=== PATIENT | male | born 1930 | race Caucasian/White ===

== ENCOUNTER 2016-06-02 05:14 | Inpatient (IN) | payer MEDICARE ==
[~2016-06-02] VITALS: Ht 172.7 cm; Wt 105.0 kg
[~2016-06-02 05:14] MED LIST: ALBU0.63 NEB; ALBUAER3 INH; ASPI81CH CHEW; AZIT500T2 PO; CITA20TA4 PO; HYDR-3580 PO; IPRA0.02 NEB; LORA1TAB12 PO; MIRTA15 PO; POTA1TAB4 PO; PRED20 PO; VENTAER INH; ZOLP10TA3 PO
[2016-06-02 05:17] VITALS: BP 138/81; PULSE 104; RESP 20; TEMP 97.8; O2SAT 98
--- NOTE | 2016-06-02 06:16 | RADRPT ---
EXAM DATE/TIME: 06/02/2016 05:57 [facility] COMPARISON: No previous studies available for comparison. INDICATIONS : Pt fell yesterday and landed on elbows. Pain and bleeding to right elbow. MEDICAL HISTORY : Hypertension. Myocardial infarction. Congestive heart failure. COPD SURGICAL HISTORY : CABG. ENCOUNTER: Initial ACUITY: 1 day PAIN SCORE: 7/10 LOCATION: Right elbow FINDINGS: Multiple view examination of the right elbow demonstrates no soft tissue swelling, joint effusion, or fracture. The osseous structures are in normal alignment. Bony mineralization is normal. 16mm chronic appearing heterotopic ossification seen adjacent to the medial epicondyle. CONCLUSION: No acute fracture of the right elbow. Chronic appearing heterotopic ossification of the medial epicon dyle which may be related to old trauma or chronic tendinosis of the common flexor origin. Charlie Gamino MD on June 02, 2016 at 6:12 Board Certified Radiologist. This report was verified electronically.
--- NOTE | 2016-06-02 06:19 | RADRPT ---
EXAM DATE/TIME: 06/02/2016 05:58 [facility] COMPARISON: No previous studies available for comparison. INDICATIONS : Bilateral leg pain. MEDICAL HISTORY : Myocardial infarction. Hypercholesterolemia. Hypertension. Glaucoma. Congestive heart failure. COPD. SURGICAL HISTORY : CABG Cardiac catheterization. Hernia repair. ENCOUNTER: Subsequent ACUITY: 1 day PAIN SCORE: 0/10 LOCATION: Bilateral legs. TECHNIQUE: Venous ultrasound of the left and right leg was performed from the inguinal ligament to the proximal calf. Real-time, color Doppler and spectral tracing, compression and augmentation techniques were us ed. FINDINGS: RIGHT LEG: There is normal compressibility of the deep venous system from the inguinal region to the proximal ca lf. No echogenic clot is seen in the lumen of the common femoral, femoral, popliteal, and posterior tibial veins. There is a normal response of the venous system to proximal and distal augmentation an d respiration. LEFT LEG: There is normal compressibility of the deep venous system from the inguinal region to the proximal ca lf. No echogenic clot is seen in the lumen of the common femoral, femoral, popliteal, and posterior tibial veins. There is a normal response of the venous system to proximal and distal augmentation an d respiration. CONCLUSION: No DVT of either lower extremity. Subcutaneous edema noted, especially below the knee on the right. Charlie Gamino MD on June 02, 2016 at 6:16 Board Certified Radiologist. This report was verified electronically.
[2016-06-02 06:47] VITALS: BP 142/68; PULSE 78; RESP 16; O2SAT 96
[2016-06-02] MEDS ORDERED: VANCOMYCIN INJ 1,000 MG in SODIUM CHLOR 0.9% 250 ML INJ 250 ML IV ONE (07:00)
[2016-06-02] MEDS ORDERED: PIPERACIL-TAZO 3.375 GM PREMIX 50 ML IV ONE (07:00)
--- NOTE | 2016-06-02 07:16 | PD ---
HPI Chief Complaint: Fall Time Seen by Provider: 05:44 Travel History International Travel<30 days: No Contact w/Intl Traveler<30days: No Traveled to known affect area: No History of Present Illness HPI Patient is an 86-year-old male presents to emergency department after trip and fall at home. Patient states he was getting a chair trying to bring upstairs facility prop his foot up because his been swollen. Patient states he tripped and fell and put his elbows on front of him to protect his head, did not his head or neck. His next door neighbor came over and dressed his wounds brought him in to be evaluated for his wounds. Patient was evaluated had an urgent care facility for his right lower externa a swelling and was started on doxycycline 6 days ago. Patient states his leg does not improve significant since then. Denies any fever shortness of breath. Denies any history of blood clots and does not take any blood thinners. Last tetanus was within a year as part of a checkup. PFSH Past Medical History Hx Anticoagulant Therapy: No Asthma: Yes ([place]) Autoimmune Disease: No Blood Disorders: No Anxiety: Yes Depression: Yes Heart Rhythm Problems: Yes Cancer: No Cardiac Catheterization: Yes (1999) Cardiovascular Problems: Yes (CABG X4, [place], CAD) High Cholesterol: Yes Chemotherapy: No Chest Pain: Yes Congestive Heart Failure: Yes COPD: Yes Coronary Artery Disease: Yes Diabetes: No Diminished Hearing: Yes ([place]) Endocrine: No Gastrointestinal Disorders: Yes Glaucoma: Yes Genitourinary: No Hiatal Hernia: Yes Hypertension: Yes Insomnia: Yes Musculoskeletal: Yes (CHRONIC BACK PAIN ) Neurologic: No Psychiatric: Yes Respiratory: Yes (SOB) Myocardial Infarction: Yes (2004) Sleep Apnea: No PNEUMOCCOCAL Vaccine (Year): 1 Past Surgical History Abdominal Surgery: Yes (HERNIA) AICD: No Cardiac Surgery: Yes Coronary Artery Bypass Graft: Yes (4 BYPASS-2004) Eye Surgery: Yes (CATARACTS) Genitourinary Surgery: Yes (hydrocele) Pacemaker: No Tonsillectomy: Yes Other Surgery: Yes Family History Family Myocardial Infarction: Yes Social History Alcohol Use: No Tobacco Use: No (QUIT 1950) Substance Use: No Allergies-Medications (Allergen,Severity, Reaction): Coded Allergies: No Known Allergies (Verified , 06/02/16) Reported Meds & Prescriptions Reported Meds & Active Scripts Active Proair Hfa 8.5 GM Inh (Albuterol Sulfate) 90 Mcg/Act Aer 2 Puff INH Q6H PRN 108 mcg/actuation Lorazepam 1 Mg Tab 1 Mg PO Q8H PRN Reported K-Tab (Potassium Chloride) 20 Meq Tab 20 Meq PO DAILY Ipratropium Neb (Ipratropium [place]) 0.5 Mg/2.5 Ml Amp 0.5 Mg NEB ONCE Ventolin Hfa 18 GM Inh (Albuterol Sulfate) 90 Mcg/Act Aer 1 Puff INH Q4H PRN Albuterol Neb (Albuterol Sulfate) 0.63 Mg/3 Ml Neb 0.083 % NEB Q4HR NEB PRN Aspirin 81 Mg Chew 2 Tab CHEW DAILY Mirtazapine 15 Mg Tab 15 Mg PO HS Hydrocodone-Acetaminophen 7.5-325 mg Tab 1 Tab PO TID PRN Zolpidem (Zolpidem Tartrate) 10 Mg Tab 10 Mg PO HS PRN Citalopram (Citalopram Hydrobromide) 20 Mg Tab 20 Mg PO HS Review of Systems Except as stated in HPI: all other systems reviewed are Neg Physical Exam Narrative GENERAL: Well-developed well-nourished in no apparent distress. Quite pleasant. SKIN: Warm and dry. There are avulsion's to the extensor surface of bilateral elbows. The left is fairly linear already showing signs of early healing and scabbed formation. The right shows multiple quarter-sized abrasions and skin avulsions. Hemodynamically intact. The right lower extremity shows cellulitis from the patella distally and nearly circumferential. HEAD: Atraumatic. Normocephalic. EYES: Pupils equal and round. No scleral icterus. No injection or drainage. ENT: No nasal bleeding or discharge. Mucous membranes pink and moist. NECK: Trachea midline. No JVD. CARDIOVASCULAR: Regular rate and rhythm. No murmur appreciated. 2+ bilateral equal pulses in all 4 extremity's. RESPIRATORY: No accessory muscle use. Clear to auscultation. Breath sounds equal bilaterally. GASTROINTESTINAL: Abdomen soft, non-tender, nondistended. Hepatic and splenic margins not palpable. MUSCULOSKELETAL: No obvious deformities. No clubbing. No cyanosis. 2-3+ pitting edema from the anterior tibial prominence distally On the right lower extremity only. There is no swelling of the left lower extremity. NEUROLOGICAL: Awake and alert. No obvious cranial nerve deficits. Motor grossly within normal limits. Normal speech. PSYCHIATRIC: Appropriate mood and affect; insight and judgment normal. Data Data Last Documented VS Vital Signs Date Time Temp Pulse Resp B/P Pulse Ox O2 Delivery O2 Flow Rate FiO2 06/02/16 07:40 96 06/02/16 06:47 78 16 142/68 Room Air 06/02/16 05:17 97.8 Orders Elbow, Complete (4 Vws) (06/02/16 ) Us Leg Venous Doppler Bilat (06/02/16 ) Complete Blood Count With Diff (06/02/16 06:55) Comprehensive Metabolic Panel (06/02/16 06:55) Blood Culture (06/02/16 06:55) Blood Glucose (06/02/16 06:55) Ecg Monitoring (06/02/16 06:55) Iv Access Insert/Monitor (06/02/16 06:55) Oximetry (06/02/16 06:55) Oxygen Administration (06/02/16 06:55) Lactic Acid (06/02/16 06:55) Vancomycin Inj (Vancomycin Inj) (06/02/16 07:00) Piperacil-Tazo 3.375 Gm Premix (Zosyn 3. (06/02/16 07:00) Admit Order (Ed Use Only) (06/02/16 ) Labs Laboratory Tests Test 06/02/16 07:00 White Blood Count 9.2 TH/MM3 Red Blood Count 4.13 MIL/MM3 Hemoglobin 12.9 GM/DL Hematocrit 38.7 % Mean Corpuscular Volume 93.7 FL Mean Corpuscular Hemoglobin 31.4 PG Mean Corpuscular Hemoglobin 33.5 % Concent Red Cell Distribution Width 15.7 % Platelet Count 182 TH/MM3 Mean Platelet Volume 8.9 FL Neutrophils (%) (Auto) 61.5 % Lymphocytes (%) (Auto) 24.6 % Monocytes (%) (Auto) 11.3 % Eosinophils (%) (Auto) 1.9 % Basophils (%) (Auto) 0.7 % Neutrophils # (Auto) 5.7 TH/MM3 Lymphocytes # (Auto) 2.3 TH/MM3 Monocytes # (Auto) 1.0 TH/MM3 Eosinophils # (Auto) 0.2 TH/MM3 Basophils # (Auto) 0.1 TH/MM3 CBC Comment DIFF FINAL Differential Comment Sodium Level 139 MEQ/L Potassium Level 4.7 MEQ/L Chloride Level 100 MEQ/L Carbon Dioxide Level 34.2 MEQ/L Anion Gap 5 MEQ/L Blood Urea Nitrogen 24 MG/DL Creatinine 1.44 MG/DL Estimat Glomerular Filtration 47 ML/MIN Rate Random Glucose 111 MG/DL Lactic Acid Level 1.4 mmol/L Calcium Level 8.7 MG/DL Total Bilirubin 0.5 MG/DL Aspartate Amino Transf 36 U/L (AST/SGOT) Alanine Aminotransferase 22 U/L (ALT/SGPT) Alkaline Phosphatase 83 U/L Total Protein 7.5 GM/DL Albumin 3.3 GM/DL [facility] Medical Decision Making Medical Screen Exam Complete: Yes Emergency Medical Condition: Yes Differential Diagnosis Fall, cellulitis, failure of outpatient therapy, sepsis unlikely, elbow fracture. C-spine and head are excluded clinically. Narrative Course Patient was roomed in the emergency department, DVT ultrasound shows no evidence of DVT but significant cellulitis. On exam of the patient's right lower extremity does have significant cellulitis and given that his been nontoxic in for 6 days and has not had a response this is a failure of outpatient therapy. Patient appears well. X-ray of the elbow is negative. He has some minor skin avulsions but nothing that requires approximation. Will be dressed with non-adherent dressings. Patient was discussed with Dr. Barraza who will admit. Diagnosis Primary Impression: Cellulitis Qualified Code: L03.115 - Cellulitis of right lower extremity Additional Impressions: Skin avulsion Fall Qualified Code: W19.XXXA - Fall, initial encounter Admitting Information Admitting Physician Requests: Observation Condition: Stable Sb Youngblood MD Jun 02, 2016 07:16
[2016-06-02 07:30] LABS: AUTOMATED NEUTROPHIL # 5.7 TH/MM3 (1.8-7.7); BASOPHIL # 0.1 TH/MM3 (0-0.2); BASOPHIL % 0.7 % (0.0-2.0); EOSINOPHIL # 0.2 TH/MM3 (0-0.4); EOSINOPHIL % 1.9 % (0.0-4.0); HEMATOCRIT 38.7 % (39.0-51.0); HEMO FLAGS DIFF FINAL; LYMPH % 24.6 % (9.0-44.0); LYMPHOCYTE # 2.3 TH/MM3 (1.0-4.8); MEAN CELL VOLUME 93.7 FL (80.0-100.0); MEAN CORPUSCULAR HEMOGLOBIN 31.4 PG (27.0-34.0); MEAN CORPUSCULAR HGB CONC 33.5 % (32.0-36.0); MONO % 11.3 % (0.0-8.0); NEUT % 61.5 % (16.0-70.0); PLATELET COUNT 182 TH/MM3 (150-450); RED BLOOD COUNT 4.13 MIL/MM3 (4.50-5.90); RED CELL DISTRIBUTION WIDTH 15.7 % (11.6-17.2); WHITE BLOOD COUNT 9.2 TH/MM3 (4.0-11.0)
[2016-06-02 07:40] VITALS: O2SAT 96
[2016-06-02 07:46] LABS: ALKALINE PHOSPHATASE 83 U/L (45-117); TOTAL BILIRUBIN ADULT 0.5 MG/DL (0.2-1.0)
[2016-06-02 07:48] LABS: ALT (GPT) 22 U/L (12-78); ANION GAP 5 MEQ/L (5-15); AST (GOT) 36 U/L (15-37); BICARBONATE 34.2 MEQ/L (21.0-32.0); BLOOD UREA NITROGEN 24 MG/DL (7-18); CHLORIDE 100 MEQ/L (98-107); GLOMERULAR FILTRATION RATE 47 ML/MIN (>89); SODIUM (NA) 139 MEQ/L (136-145)
[2016-06-02 07:49] LABS: POTASSIUM 4.7 MEQ/L (3.5-5.1)
[2016-06-02] MEDS ORDERED: LORazepam 1 MG TAB PO PRN (15:00)
[2016-06-02] MEDS ORDERED: RESP: ALBUTEROL 2.5 MG/IPRATROPIUM 0.5 MG NEB (PRN) NEB (15:00)
[2016-06-02] MEDS ORDERED: Vancomycin Consult Pharmacy 1 EA OTHER SCH (15:00)
--- NOTE | 2016-06-02 15:01 | HHI.HP ---
HPI Service [facility] Hospitalists Primary Care Physician Zenon Melendrez M.D. Admission Diagnosis Cellulitis Chief Complaint: fall/right leg swelling Travel History International Travel<30 Days: No Contact w/Intl Traveler <30 Da: No Traveled to Known Affected Are: No History of Present Illness Pt is 86 yo with cad and copd who presents after fall and also complaint of rle swelling. Pt says his RLE has been swollen and now red progressing over past month. He was given some doxycycline which didn't help. He was trying get his leg elevated when he fell and injured both elbows. I was asked to admit him in relation to his leg. Review of Systems Other fall. elbows injured rle swelling Past Family Social History Past Medical History chronic back pains requiring every other month TERRELL cad/cabg x 4 copd. fev1 43% 2014. reversible with bronchodilators htn anxiety hyperlipidemia bph Reported Medications Reported Meds & Active Scripts Active Proair Hfa 8.5 GM Inh (Albuterol Sulfate) 90 Mcg/Act Aer 2 Puff INH Q6H PRN 108 mcg/actuation Lorazepam 1 Mg Tab 1 Mg PO Q8H PRN Reported K-Tab (Potassium Chloride) 20 Meq Tab 20 Meq PO DAILY Ipratropium Neb (Ipratropium [place]) 0.5 Mg/2.5 Ml Amp 0.5 Mg NEB ONCE Ventolin Hfa 18 GM Inh (Albuterol Sulfate) 90 Mcg/Act Aer 1 Puff INH Q4H PRN Albuterol Neb (Albuterol Sulfate) 0.63 Mg/3 Ml Neb 0.083 % NEB Q4HR NEB PRN Aspirin 81 Mg Chew 2 Tab CHEW DAILY Mirtazapine 15 Mg Tab 15 Mg PO HS Hydrocodone-Acetaminophen 7.5-325 mg Tab 1 Tab PO TID PRN Zolpidem (Zolpidem Tartrate) 10 Mg Tab 10 Mg PO HS PRN Citalopram (Citalopram Hydrobromide) 20 Mg Tab 20 Mg PO HS Allergies: Coded Allergies: No Known Allergies (Verified , 06/02/16) Family History nc Social History no tob/etoh Physical Exam Vital Signs oriented heart reg lung cta abd s/nt ext severe rle edema/tenderness/redness to above the knee both elbow wrapped with ruadel Vital Signs Date Time Temp Pulse Resp B/P Pulse Ox O2 Delivery O2 Flow Rate FiO2 06/02/16 07:40 96 06/02/16 07:40 96 06/02/16 06:47 78 16 142/68 96 Room Air 06/02/16 06:01 20 97 Room Air 06/02/16 05:17 97.8 104 20 138/81 98 Room Air Laboratory Laboratory Tests Test 06/02/16 07:00 White Blood Count 9.2 Red Blood Count 4.13 Hemoglobin 12.9 Hematocrit 38.7 Mean Corpuscular Volume 93.7 Mean Corpuscular Hemoglobin 31.4 Mean Corpuscular Hemoglobin 33.5 Concent Red Cell Distribution Width 15.7 Platelet Count 182 Mean Platelet Volume 8.9 Neutrophils (%) (Auto) 61.5 Lymphocytes (%) (Auto) 24.6 Monocytes (%) (Auto) 11.3 Eosinophils (%) (Auto) 1.9 Basophils (%) (Auto) 0.7 Neutrophils # (Auto) 5.7 Lymphocytes # (Auto) 2.3 Monocytes # (Auto) 1.0 Eosinophils # (Auto) 0.2 Basophils # (Auto) 0.1 CBC Comment DIFF FINAL Differential Comment Sodium Level 139 Potassium Level 4.7 Chloride Level 100 Carbon Dioxide Level 34.2 Anion Gap 5 Blood Urea Nitrogen 24 Creatinine 1.44 Estimat Glomerular Filtration 47 Rate Random Glucose 111 Lactic Acid Level 1.4 Calcium Level 8.7 Total Bilirubin 0.5 Aspartate Amino Transf 36 (AST/SGOT) Alanine Aminotransferase 22 (ALT/SGPT) Alkaline Phosphatase 83 Total Protein 7.5 Albumin 3.3 Date/Time Procedure Status Source Growth 06/02/16 07:15 Aerobic Blood Culture Received Blood Peripheral Pending 06/02/16 07:15 Anaerobic Blood Culture Received Blood Peripheral Pending Result Diagram: 06/02/16 0706/02/16 0700 Assessment and Plan Problem List: (1) Cellulitis Status: Acute Plan: Cellulitis right lower extremity. failed outpt therapy. S/P fall today with abrasions over both elbows. Vancomycin initiated. continue. elevate leg. U/S rle neg for dvt PT dvt prophylaxis prn pain control (2) CAD (coronary artery disease) Status: Chronic Plan: cont home meds (3) COPD (chronic obstructive pulmonary disease) Status: Chronic Plan: stable. duonebs as needed. (4) Anxiety Status: Chronic (5) CKD (chronic kidney disease) stage 3, GFR 30-59 ml/min Status: Chronic Physician Certification 2 Midnight Certification Type: Admission for Inpatient Services Order for Inpatient Services 3The services are ordered in accordance with Medicare regulations or non- Medicare payer requirements, as applicable. In the case of services not specified as inpatient-only, they are appropriately provided as inpatient services in accordance with the 2-midnight benchmark. Estimated LOS (days): 3 3 days is the estimated time the patient will need to remain in the hospital, assuming treatment plan goals are met and no additional complications. Post-Hospital Plan: Home Problem Qualifiers (1) Cellulitis: Qualified Code: L03.115 - Cellulitis of right lower extremity Sorin Barraza MD Jun 02, 2016 15:01
[2016-06-02 16:00] VITALS: BP 143/70; PULSE 92; RESP 22; TEMP 98.2; O2SAT 95
[2016-06-02] MEDS ORDERED: VANCOMYCIN INJ 750 MG in SODIUM CHLOR 0.9% 250 ML INJ 250 ML IV SCH (17:00)
[2016-06-02 20:45] VITALS: BP 140/75; PULSE 95; RESP 16; TEMP 98; O2SAT 92
[2016-06-02] MEDS: MIRTAZAPINE 15 MG TAB PO SCH (21:19)
[2016-06-02] MEDS: CITALOPRAM HYDROBROMIDE 20 MG TAB PO SCH (21:19)
[2016-06-02] MEDS: ACETAMINOPHEN/HYDROcodone 325 MG/7.5 MG TAB PO PRN (21:21)
[2016-06-02 23:58] VITALS: BP 162/76; PULSE 95; RESP 16; TEMP 97.4; O2SAT 90
[2016-06-03 04:21] VITALS: BP 128/76; PULSE 78; RESP 18; TEMP 97.9; O2SAT 94
[2016-06-03 06:39] LABS: BICARBONATE 32.5 MEQ/L (21.0-32.0); POTASSIUM 3.7 MEQ/L (3.5-5.1)
[2016-06-03 08:45] VITALS: BP 187/88; PULSE 94; RESP 18; TEMP 97.8; O2SAT 93
[2016-06-03] MEDS: HEPARIN SODIUM - SQ 10,000 UNITS/ML VIAL SQ SCH ×2 (09:00→22:21)
[2016-06-03] MEDS: POTASSIUM CHLORIDE 20 MEQ CONTROLLED RELEASE TAB PO SCH (09:59)
[2016-06-03] MEDS: ASPIRIN 81 MG CHEW TAB CHEW SCH (10:00)
[2016-06-03] MEDS: ACETAMINOPHEN/HYDROcodone 325 MG/7.5 MG TAB PO PRN ×2 (10:00→15:11)
--- NOTE | 2016-06-03 11:59 | HHI.PR ---
Subjective Remarks Pt without any new complaints. He reports that he walked with PT this morning. Afebrile Objective Vitals Vital Signs Date Time Temp Pulse Resp B/P Pulse Ox O2 Delivery O2 Flow Rate FiO2 06/03/16 08:45 97.8 94 18 187/88 93 06/03/16 04:21 97.9 78 18 128/76 94 06/02/16 23:58 97.4 95 16 162/76 90 06/02/16 20:45 98.0 95 16 140/75 92 06/02/16 16:00 98.2 92 22 143/70 95 06/02/16 06/02/16 06/03/16 15:00 23:00 07:00 Intake Total 480 ml 50 ml Balance 480 ml 50 ml Intake Oral 480 ml 50 ml # Voids 2 2 # Bowel Movements 0 Result Diagram: 06/02/16 0700 06/03/16 0529 Other Results Laboratory Tests Test 06/02/16 06/03/16 07:00 05:29 White Blood Count 9.2 TH/MM3 Red Blood Count 4.13 MIL/MM3 Hemoglobin 12.9 GM/DL Hematocrit 38.7 % Mean Corpuscular Volume 93.7 FL Mean Corpuscular Hemoglobin 31.4 PG Mean Corpuscular Hemoglobin 33.5 % Concent Red Cell Distribution Width 15.7 % Platelet Count 182 TH/MM3 Mean Platelet Volume 8.9 FL Neutrophils (%) (Auto) 61.5 % Lymphocytes (%) (Auto) 24.6 % Monocytes (%) (Auto) 11.3 % Eosinophils (%) (Auto) 1.9 % Basophils (%) (Auto) 0.7 % Neutrophils # (Auto) 5.7 TH/MM3 Lymphocytes # (Auto) 2.3 TH/MM3 Monocytes # (Auto) 1.0 TH/MM3 Eosinophils # (Auto) 0.2 TH/MM3 Basophils # (Auto) 0.1 TH/MM3 CBC Comment DIFF FINAL Differential Comment Sodium Level 139 MEQ/L 139 MEQ/L Potassium Level 4.7 MEQ/L 3.7 MEQ/L Chloride Level 100 MEQ/L 100 MEQ/L Carbon Dioxide Level 34.2 MEQ/L 32.5 MEQ/L Anion Gap 5 MEQ/L 7 MEQ/L Blood Urea Nitrogen 24 MG/DL 22 MG/DL Creatinine 1.44 MG/DL 1.19 MG/DL Estimat Glomerular Filtration 47 ML/MIN 58 ML/MIN Rate Random Glucose 111 MG/DL 111 MG/DL Lactic Acid Level 1.4 mmol/L Calcium Level 8.7 MG/DL 8.7 MG/DL Total Bilirubin 0.5 MG/DL Aspartate Amino Transf 36 U/L (AST/SGOT) Alanine Aminotransferase 22 U/L (ALT/SGPT) Alkaline Phosphatase 83 U/L Total Protein 7.5 GM/DL Albumin 3.3 GM/DL Random Vancomycin Level 10.6 COMMENT Imaging Last Impressions Lower Extremity Ultrasound 06/02/16 0000 Signed Impressions: Service Date/Time: Thursday, June 02, 2016 05:58 - CONCLUSION: No DVT of either lower extremity. Subcutaneous edema noted, especially below the knee on the right. Charlie Gamino MD Elbow X-Ray 06/02/16 0000 Signed Impressions: Service Date/Time: Thursday, June 02, 2016 05:57 - CONCLUSION: No acute fracture of the right elbow. 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 Charlie Gamino MD Objective Remarks General: NAD, AAOx3 Chest: CTA bilaterally Cardiac: Regular Abd: +BS, soft ND/NT Ext: RLE erythema and swelling to the knee, elbows with skin tears bilaterally A/P Problem List: (1) Cellulitis Status: Acute Plan: - Pt admitted with cellulitis right lower extremity which failed outpt therapy with Doxycycline - Pt fell prior to admission with abrasions over both elbows. - Elbow Xray negative for fracture - Pt started on Vancomycin IV for cellulitis. - Cont. to elevate leg. - U/S RLE neg for DVT - PT - Pain control PRN - DVT prophylaxis (2) CAD (coronary artery disease) Status: Chronic Plan: - Cont home meds (3) COPD (chronic obstructive pulmonary disease) Status: Chronic Plan: - Stable. - Duonebs as needed. (4) Anxiety Status: Chronic (5) CKD (chronic kidney disease) stage 3, GFR 30-59 ml/min Status: Chronic Assessment and Plan Patient examined. Assessment and plan formulated with Karissa Pritchett PA-C. I agree with the above. Problem Qualifiers (1) Cellulitis: Qualified Code: L03.115 - Cellulitis of right lower extremity Karissa Pritchettb 13, 2017 11:59 Calos Rice DO Jun 09, 2016 06:40
[2016-06-03 12:01] VITALS: BP 142/65; PULSE 96; RESP 18; O2SAT 93
[2016-06-03] MEDS: VANCOMYCIN INJ 1,750 MG in SODIUM CHLORID 0.9% 500 ML INJ 500 ML IV SCH (12:34)
[2016-06-03 16:09] VITALS: BP 127/62; PULSE 93; RESP 18; O2SAT 95
[2016-06-03 19:59] VITALS: BP 142/70; PULSE 80; RESP 18; TEMP 98.2; O2SAT 97
[2016-06-03] MEDS: MIRTAZAPINE 15 MG TAB PO SCH (22:17)
[2016-06-03] MEDS: ZOLPIDEM TARTRATE 5 MG TAB PO PRN (22:17)
[2016-06-03] MEDS: CITALOPRAM HYDROBROMIDE 20 MG TAB PO SCH (22:17)
[2016-06-04] VITALS (7 sets, daily range): BP systolic 128–183; BP diastolic 70–80; PULSE 76–92; RESP 18–20; TEMP 97.5–98.6; O2SAT 93–97
[2016-06-04] MEDS: ASPIRIN 81 MG CHEW TAB CHEW SCH (09:01)
[2016-06-04] MEDS: HEPARIN SODIUM - SQ 10,000 UNITS/ML VIAL SQ SCH ×2 (09:01→22:10)
[2016-06-04] MEDS: POTASSIUM CHLORIDE 20 MEQ CONTROLLED RELEASE TAB PO SCH (09:01)
[2016-06-04] MEDS: ACETAMINOPHEN/HYDROcodone 325 MG/7.5 MG TAB PO PRN ×2 (09:01→15:05)
[2016-06-04] MEDS: VANCOMYCIN INJ 1,750 MG in SODIUM CHLORID 0.9% 500 ML INJ 500 ML IV SCH (10:47)
--- NOTE | 2016-06-04 13:43 | HHI.PR ---
Subjective Remarks No new complaints Objective Vitals Vital Signs Date Time Temp Pulse Resp B/P Pulse Ox O2 Delivery O2 Flow Rate FiO2 06/04/16 12:00 98.6 89 18 171/77 94 06/04/16 08:00 97.5 89 20 183/80 97 06/04/16 05:15 92 18 128/73 97 06/04/16 01:26 76 20 130/71 96 06/03/16 20:00 Nasal Cannula 2.00 06/03/16 19:59 98.2 80 18 142/70 97 06/03/16 16:09 93 18 127/62 95 06/03/16 06/03/16 06/04/16 15:00 23:00 07:00 Intake Total 1050 ml Output Total 900 ml Balance 150 ml Intake Oral 800 ml IV Total 250 ml Output Urine Total 900 ml Result Diagram: 06/02/16 0700 06/04/16 0533 Other Results Laboratory Tests Test 06/03/16 06/04/16 05:29 05:33 Sodium Level 139 MEQ/L Potassium Level 3.7 MEQ/L Chloride Level 100 MEQ/L Carbon Dioxide Level 32.5 MEQ/L Anion Gap 7 MEQ/L Blood Urea Nitrogen 22 MG/DL Creatinine 1.19 MG/DL 1.11 MG/DL Estimat Glomerular Filtration 58 ML/MIN 63 ML/MIN Rate Random Glucose 111 MG/DL Calcium Level 8.7 MG/DL Random Vancomycin Level 10.6 COMMENT Imaging Last Impressions Lower Extremity Ultrasound 06/02/16 0000 Signed Impressions: Service Date/Time: Thursday, June 02, 2016 05:58 - CONCLUSION: No DVT of either lower extremity. Subcutaneous edema noted, especially below the knee on the right. Charlie Gamino MD Elbow X-Ray 06/02/16 0000 Signed Impressions: Service Date/Time: Thursday, June 02, 2016 05:57 - CONCLUSION: No acute fracture of the right elbow. 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 Charlie Gamino MD Objective Remarks General: NAD, AAOx3 Chest: CTA bilaterally Cardiac: Regular Abd: +BS, soft ND/NT Ext: RLE erythema and swelling to the knee, elbows with skin tears bilaterally A/P Problem List: (1) Cellulitis Status: Acute Plan: - Pt admitted with cellulitis right lower extremity which failed outpt therapy with Doxycycline - Pt fell prior to admission with abrasions over both elbows. - Elbow Xray negative for fracture - Pt started on Vancomycin IV for cellulitis. Symptomatically seems to be improving. - Cont. to elevate leg. - U/S RLE neg for DVT - PT - Pain control PRN - DVT prophylaxis (2) CAD (coronary artery disease) Status: Chronic Plan: - Pts blood pressure is elevated today - May be pain related - Clonidine PRN (3) COPD (chronic obstructive pulmonary disease) Status: Chronic Plan: - Stable. - Duonebs as needed. (4) Anxiety Status: Chronic (5) CKD (chronic kidney disease) stage 3, GFR 30-59 ml/min Status: Chronic Assessment and Plan Patient examined. Assessment and plan formulated with Karissa Pritchett PA-C. I agree with the above. Problem Qualifiers (1) Cellulitis: Qualified Code: L03.115 - Cellulitis of right lower extremity Karissa Pritchett Jun 04, 2016 13:43 Calos Rice DO Jun 09, 2016 06:40
[2016-06-04] MEDS ORDERED: cloNIDine HCL 0.1 MG TAB PO PRN (13:45)
[2016-06-04] MEDS: MIRTAZAPINE 15 MG TAB PO SCH (22:10)
[2016-06-04] MEDS: CITALOPRAM HYDROBROMIDE 20 MG TAB PO SCH (22:10)
[2016-06-04] MEDS: ZOLPIDEM TARTRATE 5 MG TAB PO PRN (22:10)
[2016-06-05] VITALS (8 sets, daily range): BP systolic 129–174; BP diastolic 66–109; PULSE 78–94; RESP 16–20; TEMP 96.1–98.6; O2SAT 91–96
[2016-06-05 06:14] LABS: AUTOMATED NEUTROPHIL # 3.6 TH/MM3 (1.8-7.7); BASOPHIL % 0.7 % (0.0-2.0); EOSINOPHIL # 0.2 TH/MM3 (0-0.4); EOSINOPHIL % 3.7 % (0.0-4.0); HEMATOCRIT 36.4 % (39.0-51.0); HEMO FLAGS DIFF FINAL; LYMPH % 27.9 % (9.0-44.0); LYMPHOCYTE # 1.7 TH/MM3 (1.0-4.8); MEAN CELL VOLUME 94.7 FL (80.0-100.0); MEAN CORPUSCULAR HEMOGLOBIN 30.9 PG (27.0-34.0); MEAN CORPUSCULAR HGB CONC 32.6 % (32.0-36.0); MONO % 10.5 % (0.0-8.0); NEUT % 57.2 % (16.0-70.0); PLATELET COUNT 177 TH/MM3 (150-450); RED BLOOD COUNT 3.84 MIL/MM3 (4.50-5.90); WHITE BLOOD COUNT 6.2 TH/MM3 (4.0-11.0)
[2016-06-05 06:32] LABS: MAGNESIUM 2.2 MG/DL (1.5-2.5); POTASSIUM 3.8 MEQ/L (3.5-5.1)
[2016-06-05] MEDS: POTASSIUM CHLORIDE 20 MEQ CONTROLLED RELEASE TAB PO SCH (09:21)
[2016-06-05] MEDS: HEPARIN SODIUM - SQ 10,000 UNITS/ML VIAL SQ SCH ×2 (09:22→21:20)
[2016-06-05] MEDS: ACETAMINOPHEN/HYDROcodone 325 MG/7.5 MG TAB PO PRN ×2 (09:22→21:20)
[2016-06-05] MEDS: ASPIRIN 81 MG CHEW TAB CHEW SCH (09:22)
[2016-06-05] MEDS ORDERED: MUPIROCIN 2% CREAM 15 GM TOPICAL ONE (09:30)
--- NOTE | 2016-06-05 09:42 | HHI.PR ---
Subjective Remarks Pt complains of pain at the right elbow where his skin tear is. He states that this is more painful than the cellulitis. Objective Vitals Vital Signs Date Time Temp Pulse Resp B/P Pulse Ox O2 Delivery O2 Flow Rate FiO2 06/05/16 08:08 96.6 82 18 174/73 92 06/05/16 08:00 96.4 87 16 160/109 94 06/05/16 05:02 98.2 91 18 158/101 96 06/05/16 04:08 96 06/05/16 00:29 98.6 94 16 170/77 96 06/04/16 21:14 98.2 87 18 148/70 95 06/04/16 14:54 98.1 84 148/70 93 06/04/16 14:12 130/75 06/04/16 12:00 98.6 89 18 171/77 94 06/04/16 06/04/16 06/05/16 15:00 23:00 07:00 Intake Total 1000 ml Output Total 1000 ml 1000 ml Balance 0 ml -1000 ml Intake Oral 750 ml IV Total 250 ml Output Urine Total 1000 ml 1000 ml Result Diagram: 06/05/16 0539 06/05/16 0539 Other Results Laboratory Tests Test 06/04/16 06/05/16 05:33 05:39 Creatinine 1.11 MG/DL 1.03 MG/DL Estimat Glomerular Filtration 63 ML/MIN 69 ML/MIN Rate White Blood Count 6.2 TH/MM3 Red Blood Count 3.84 MIL/MM3 Hemoglobin 11.9 GM/DL Hematocrit 36.4 % Mean Corpuscular Volume 94.7 FL Mean Corpuscular Hemoglobin 30.9 PG Mean Corpuscular Hemoglobin 32.6 % Concent Red Cell Distribution Width 15.0 % Platelet Count 177 TH/MM3 Mean Platelet Volume 8.7 FL Neutrophils (%) (Auto) 57.2 % Lymphocytes (%) (Auto) 27.9 % Monocytes (%) (Auto) 10.5 % Eosinophils (%) (Auto) 3.7 % Basophils (%) (Auto) 0.7 % Neutrophils # (Auto) 3.6 TH/MM3 Lymphocytes # (Auto) 1.7 TH/MM3 Monocytes # (Auto) 0.7 TH/MM3 Eosinophils # (Auto) 0.2 TH/MM3 Basophils # (Auto) 0.0 TH/MM3 CBC Comment DIFF FINAL Differential Comment Sodium Level 140 MEQ/L Potassium Level 3.8 MEQ/L Chloride Level 102 MEQ/L Carbon Dioxide Level 31.0 MEQ/L Anion Gap 7 MEQ/L Blood Urea Nitrogen 18 MG/DL Random Glucose 93 MG/DL Calcium Level 8.5 MG/DL Magnesium Level 2.2 MG/DL Imaging Last Impressions Lower Extremity Ultrasound 06/02/16 0000 Signed Impressions: Service Date/Time: Thursday, June 02, 2016 05:58 - CONCLUSION: No DVT of either lower extremity. Subcutaneous edema noted, especially below the knee on the right. Charlie Gamnio MD Elbow X-Ray 06/02/16 0000 Signed Impressions: Service Date/Time: Thursday, June 02, 2016 05:57 - CONCLUSION: No acute fracture of the right elbow. 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 Charlie Gamino MD Objective Remarks General: NAD, AAOx3 Chest: CTA bilaterally Cardiac: Regular Abd: +BS, soft ND/NT Ext: RLE erythema and swelling to the knee, elbows with skin tears bilaterally right is worse than left A/P Problem List: (1) Cellulitis Status: Acute Plan: - Pt admitted with cellulitis right lower extremity which failed outpt therapy with Doxycycline - Pt fell prior to admission with abrasions over both elbows. - Elbow Xray negative for fracture - Pt started on Vancomycin IV for cellulitis. Symptomatically seems to be improving. - Convert to po antibiotics today, Levaquin 500mg po daily x 5 days, first dose today - Cont. to elevate leg. - U/S RLE neg for DVT - Wound care for right elbow skin tear, including Bactroban BID, Telfa and gauze - PT - Pain control PRN - Anticipate discharge to SNF tomorrow, pt is agreeable to SNF placement. He lives alone and is a fall risk. - DVT prophylaxis (2) CAD (coronary artery disease) Status: Chronic Plan: - Pts blood pressure is elevated, likely secondary to pain. - Clonidine PRN (3) COPD (chronic obstructive pulmonary disease) Status: Chronic Plan: - Stable. - Duonebs as needed. (4) Anxiety Status: Chronic (5) CKD (chronic kidney disease) stage 3, GFR 30-59 ml/min Status: Chronic Assessment and Plan Patient examined. Assessment and plan formulated with Karissa Pritchett PA-C. I agree with the above. Problem Qualifiers (1) Cellulitis: Qualified Code: L03.115 - Cellulitis of right lower extremity Karissa Pritchett Jun 05, 2016 09:42 Calos Rice DO Jun 09, 2016 06:41
[2016-06-05] MEDS: LEVOFLOXACIN 500 MG TAB PO SCH (10:17)
[2016-06-05] MEDS: MUPIROCIN 2% CREAM 15 GM TOPICAL SCH (21:00)
[2016-06-05] MEDS: ZOLPIDEM TARTRATE 5 MG TAB PO PRN (21:20)
[2016-06-05] MEDS: MIRTAZAPINE 15 MG TAB PO SCH (21:20)
[2016-06-05] MEDS: CITALOPRAM HYDROBROMIDE 20 MG TAB PO SCH (21:20)
[2016-06-06 00:38] VITALS: BP 164/71; PULSE 79; RESP 20; TEMP 97.5; O2SAT 96
[2016-06-06 04:33] VITALS: BP 171/84; PULSE 84; RESP 20; TEMP 97.6; O2SAT 95
[2016-06-06] MEDS: ACETAMINOPHEN/HYDROcodone 325 MG/7.5 MG TAB PO PRN ×2 (05:08→14:08)
[2016-06-06 08:00] VITALS: BP 153/70; PULSE 79; RESP 12; TEMP 97.9; O2SAT 94
[2016-06-06] MEDS: MUPIROCIN 2% CREAM 15 GM TOPICAL SCH (09:00)
[2016-06-06] MEDS: LEVOFLOXACIN 500 MG TAB PO SCH (09:03)
[2016-06-06] MEDS: ASPIRIN 81 MG CHEW TAB CHEW SCH (09:03)
[2016-06-06] MEDS: POTASSIUM CHLORIDE 20 MEQ CONTROLLED RELEASE TAB PO SCH (09:03)
[2016-06-06] MEDS: HEPARIN SODIUM - SQ 10,000 UNITS/ML VIAL SQ SCH (09:03)
[2016-06-06] MEDS ORDERED: LEVA500T PO (10:35)
[2016-06-06 11:31] VITALS: BP 120/56; PULSE 85; RESP 16; TEMP 98.1; O2SAT 94
[2016-06-06] MEDS ORDERED: PHARMACY ORDERED LAB XX ONE (11:45)
--- NOTE | 2016-06-06 12:59 | HHI.DS ---
Discharge Summary Admission Date Jun 02, 2016 at 14:57 Discharge Date: Jun 06, 2016 Admitting Diagnosis Cellulitis (1) Cellulitis Diagnosis: Principal (2) CAD (coronary artery disease) Diagnosis: Secondary (3) COPD (chronic obstructive pulmonary disease) Diagnosis: Secondary (4) Anxiety Diagnosis: Secondary (5) CKD (chronic kidney disease) stage 3, GFR 30-59 ml/min Diagnosis: Secondary Brief History Pt is 86 yo with cad and copd who presents after fall and also complaint of rle swelling. Pt says his RLE has been swollen and now red progressing over past month. He was given some doxycycline which didn't help. He was trying get his leg elevated when he fell and injured both elbows. I was asked to admit him in relation to his leg. CBC/BMP: 06/05/16 0539 06/05/16 0539 Significant Findings Laboratory Tests Test 06/04/16 06/05/16 05:33 05:39 Estimat Glomerular Filtration 63 ML/MIN (>89) 69 ML/MIN (>89) Rate Red Blood Count 3.84 MIL/MM3 (4.50-5.90) Hemoglobin 11.9 GM/DL (13.0-17.0) Hematocrit 36.4 % (39.0-51.0) Monocytes (%) (Auto) 10.5 % (0.0-8.0) Imaging Last Impressions Lower Extremity Ultrasound 06/02/16 0000 Signed Impressions: Service Date/Time: Thursday, June 02, 2016 05:58 - CONCLUSION: No DVT of either lower extremity. Subcutaneous edema noted, especially below the knee on the right. Charlie Gamino MD Elbow X-Ray 06/02/16 0000 Signed Impressions: Service Date/Time: Thursday, June 02, 2016 05:57 - CONCLUSION: No acute fracture of the right elbow. 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 Charlie Gamino MD PE at Discharge General: NAD, AAOx3 Chest: CTA bilaterally Cardiac: Regular Abd: +BS, soft ND/NT Ext: RLE erythema and swelling to the knee, elbows with skin tears bilaterally right is worse than left Hospital Course Pt was admitted with cellulitis right lower extremity which failed outpt therapy with Doxycycline. Pt fell prior to admission with abrasions over both elbows. Elbow Xray negative for fracture. Pt was started on Vancomycin IV for cellulitis. U/S RLE neg for DVT. Symptomatically improved. He was converted to po antibiotics on 06/05/16 with Levaquin 500mg po daily x 5 days. He will need continued wound care for right elbow skin tear, including Bactroban BID, Telfa and gauze. Pt is being discharged to for continued rehab efforts. He lives alone and is a fall risk. Pts blood pressure has periodically been elevated, likely secondary to pain. He can continue Clonidine PRN at the rehab. Pt will need to followup with his PCP, Dr. Zenon Melendrez, 1 week after discharge from SNF. Pt Condition on Discharge: Stable Discharge Disposition: Discharge to SNF Discharge Instructions DIET: Follow Instructions for: Heart Healthy Diet Activities you can perform: Regular-No Restrictions Follow up Referrals: PCP Follow-up - [address] zenon Melendrez New Medications: Levofloxacin (Levaquin) 500 Mg Tab 500 MG PO Q24H Infection #5 TAB Continued Medications: Albuterol 18 GM Inh (Ventolin Hfa 18 GM Inh) 90 Mcg/Act Aer 1 PUFF INH Q4H PRN SHORTNESS OF BREATH #1 Ref 0 INHALER Albuterol 8.5 GM Inh (Proair Hfa 8.5 GM Inh) 90 Mcg/Act Aer 2 PUFF INH Q6H 108 mcg/actuation PRN SHORTNESS OF BREATH #1 Ref 0 INHALER Albuterol Neb (Albuterol Neb) 0.63 Mg/3 Ml Neb 0.083 % NEB Q4HR NEB PRN SHORTNESS OF BREATH #25 Ref 0 NEBULE Aspirin (Aspirin) 81 Mg Chew 2 TAB CHEW DAILY Ref 0 TAB Citalopram (Citalopram) 20 Mg Tab 20 MG PO HS Control Depression Ref 0 TAB Ipratropium Neb (Ipratropium Neb) 0.5 Mg/2.5 Ml Amp 0.5 MG NEB ONCE Breathing Treatment Ref 0 NEBULE Mirtazapine (Mirtazapine) 15 Mg Tab 15 MG PO HS Depression Control #30 Ref 0 TAB Potassium Chloride ER (K-Tab) 20 Meq Tab 20 MEQ PO DAILY Electrolyte Replacement #30 Ref 0 TAB Additional Information Patient examined. Assessment and plan formulated with Karissa Pritchett PA-C. I agree with the above. Karissa Pritchett Jun 06, 2016 12:59 Calos Rice DO Jun 09, 2016 06:42
[2016-06-06] MEDS ORDERED: AMBI5TAB PO (13:02)
[2016-06-06] MEDS ORDERED: LORA1TAB12 PO (13:02)
[2016-06-06] MEDS ORDERED: HYDR-3580 PO (13:02)
[2016-06-06 15:08] VITALS: BP 153/66; PULSE 85; RESP 16; TEMP 98.1; O2SAT 96
== END 2016-06-06 19:52 | disposition home or self-care (01) | DRG 603 ==
LOC: NEPE 05:14 → NEDA 08:10 → OBSVTOIN 14:57 → NEPGCP 15:33
PROVIDERS: ADMIT Hospitalist; ATTEND Hospitalist
DX: L03.115 Cellulitis of right lower limb (principal); I50.9 Heart failure, unspecified; J44.9 Chronic obstructive pulmonary disease, unspecified; Z95.1 Presence of aortocoronary bypass graft; F32.9 Major depressive disorder, single episode, unspecified; E78.00 Pure hypercholesterolemia, unspecified; I25.2 Old myocardial infarction; I25.10 Atherosclerotic heart disease of native coronary artery without angina pectoris; F41.9 Anxiety disorder, unspecified; N18.3 Chronic kidney disease, stage 3 (moderate); S51.012A Laceration without foreign body of left elbow, initial encounter; S51.011A Laceration without foreign body of right elbow, initial encounter; I12.9 Hypertensive chronic kidney disease with stage 1 through stage 4 chronic kidney disease, or unspecified chronic kidney disease; W01.0XXA Fall on same level from slipping, tripping and stumbling without subsequent striking against object, initial encounter; Y93.89 Activity, other specified; Y92.008 Other place in unspecified non-institutional (private) residence as the place of occurrence of the external cause; H91.90 Unspecified hearing loss, unspecified ear; G47.00 Insomnia, unspecified; M54.9 Dorsalgia, unspecified; G89.29 Other chronic pain; H40.9 Unspecified glaucoma; Z87.891 Personal history of nicotine dependence; Z82.49 Family history of ischemic heart disease and other diseases of the circulatory system; J45.909 Unspecified asthma, uncomplicated; E78.5 Hyperlipidemia, unspecified; N40.0 Benign prostatic hyperplasia without lower urinary tract symptoms; Z91.81 History of falling
CPT/HCPCS: 73080; 80048; 80053; 80202; 82565; 83605; 83735; 85025; 87040; 93970; 96365; 96368; J1644; J2543; J3370; J7040; J7050

== ENCOUNTER 2016-07-28 10:45 | Inpatient (IN) | payer MEDICARE ==
[~2016-07-28] VITALS: Ht 172.7 cm; Wt 100.0 kg
[~2016-07-28 10:45] MED LIST changes: +AMBI5TAB PO; -AZIT500T2 PO; +LEVA500T PO; -PRED20 PO; -ZOLP10TA3 PO
--- NOTE | 2016-07-28 10:51 | PD ---
HPI Chief Complaint: generalized weakness Time Seen by Provider: 10:51 Travel History International Travel<30 days: No Contact w/Intl Traveler<30days: No Traveled to known affect area: No History of Present Illness HPI 86-year-old male came to the emergency room with history of generalized weakness. He says that he called EMS because he was not feeling well. Patient was slightly tachycardic upon arrival. He was awakened little anxious. He was answering questions appropriately. PFSH Past Medical History Narrative Medical List of the past medical, surgical, social and family history was reviewed from the nursing note Hx Anticoagulant Therapy: No Asthma: Yes (CHILDHOOD) Autoimmune Disease: No Blood Disorders: No Anxiety: Yes Depression: Yes Heart Rhythm Problems: Yes Cancer: No Cardiac Catheterization: Yes (1999) Cardiovascular Problems: Yes (CABG X4, [place], CAD) High Cholesterol: Yes Chemotherapy: No Chest Pain: Yes Congestive Heart Failure: Yes COPD: Yes Coronary Artery Disease: Yes Diabetes: No Diminished Hearing: Yes (MENOMINEE) Endocrine: No Gastrointestinal Disorders: Yes Glaucoma: Yes Genitourinary: No Hiatal Hernia: Yes Hypertension: Yes Immune Disorder: No Insomnia: Yes Musculoskeletal: Yes (CHRONIC BACK PAIN ) Neurologic: No Psychiatric: Yes Reproductive: No Respiratory: Yes (SOB) Myocardial Infarction: Yes (2004) Sleep Apnea: No Thyroid Disease: No PNEUMOCCOCAL Vaccine (Year): 1 Past Surgical History Abdominal Surgery: Yes (HERNIA) AICD: No Cardiac Surgery: Yes Coronary Artery Bypass Graft: Yes ( BYPASS-2004) Eye Surgery: Yes (CATARACTS) Genitourinary Surgery: Yes (hydrocele) Pacemaker: No Tonsillectomy: Yes Other Surgery: Yes Social History Alcohol Use: No Tobacco Use: No (QUIT 1950) Substance Use: No Allergies-Medications (Allergen,Severity, Reaction): Coded Allergies: No Known Allergies (Verified , 06/02/16) Comments No known drug allergies. Reported Meds & Prescriptions Reported Meds & Active Scripts Active Reported Ventolin Hfa 18 GM Inh (Albuterol Sulfate) 90 Mcg/Act Aer 1 Puff INH Q4H PRN Aspirin 81 Mg Chew 2 Tab CHEW DAILY Mirtazapine 15 Mg Tab 15 Mg PO HS Citalopram (Citalopram Hydrobromide) 20 Mg Tab 20 Mg PO HS Narrative Medication List of his home medications reviewed from the nursing note. Review of Systems Except as stated in HPI: all other systems reviewed are Neg Physical Exam Narrative GENERAL: Awake, alert, no obvious distress, elderly SKIN: Focused skin assessment warm/dry. HEAD: Atraumatic. Normocephalic. EYES: Pupils equal and round. No scleral icterus. No injection or drainage. ENT: No nasal bleeding or discharge. Mucous membranes pink and moist. NECK: Trachea midline. No JVD. CARDIOVASCULAR: Regular rate and rhythm. Tachycardia. No murmur appreciated. RESPIRATORY: No accessory muscle use. Clear to auscultation. Breath sounds equal bilaterally. GASTROINTESTINAL: Abdomen soft, non-tender, nondistended. Hepatic and splenic margins not palpable. MUSCULOSKELETAL: No obvious deformities. No clubbing. No cyanosis. No edema. NEUROLOGICAL: Awake and alert. No obvious cranial nerve deficits. Motor grossly within normal limits. Normal speech. PSYCHIATRIC: Appropriate mood and affect; insight and judgment normal. Data Data Last Documented VS Vital Signs Date Time Temp Pulse Resp B/P Pulse Ox O2 Delivery O2 Flow Rate FiO2 07/28/16 11:00 96 Nasal Cannula 2 07/28/16 10:55 98.2 105 21 138/55 Orders Basic Metabolic Panel (Bmp) (07/28/16 10:58) Ckmb (Isoenzyme) Profile (07/28/16 10:58) Complete Blood Count With Diff (07/28/16 10:58) Prothrombin Time / Inr (Pt) (07/28/16 10:58) Ecg Monitoring (07/28/16 10:58) Bilateral Bp Monitoring (07/28/16 10:58) Iv Access Insert/Monitor (07/28/16 10:58) Oximetry (07/28/16 10:58) Oxygen Administration (07/28/16 10:58) Sodium Chloride 0.9% Flush (Ns Flush) (07/28/16 11:00) Morphine Inj (Morphine Inj) (07/28/16 11:00) Ct Thorax/ Chest Wo Iv Contras (07/28/16 ) Ct Cerv Spine W/O Contrast (07/28/16 ) Ct Brain W/O Iv Contrast(Rout) (07/28/16 ) Urinalysis - C+S If Indicated (07/28/16 11:52) CKMB (07/28/16 11:05) CKMB% (07/28/16 11:05) Sodium Chlorid 0.9% 500 Ml Inj (Ns 500 M (07/28/16 12:30) Admit Order (Ed Use Only) (07/28/16 12:50) Labs Laboratory Tests Test 07/28/16 11:05 White Blood Count 12.6 TH/MM3 Red Blood Count 4.71 MIL/MM3 Hemoglobin 13.9 GM/DL Hematocrit 41.8 % Mean Corpuscular Volume 88.9 FL Mean Corpuscular Hemoglobin 29.5 PG Mean Corpuscular Hemoglobin 33.2 % Concent Red Cell Distribution Width 15.5 % Platelet Count 201 TH/MM3 Mean Platelet Volume 8.7 FL Neutrophils (%) (Auto) 81.0 % Lymphocytes (%) (Auto) 11.9 % Monocytes (%) (Auto) 6.2 % Eosinophils (%) (Auto) 0.4 % Basophils (%) (Auto) 0.5 % Neutrophils # (Auto) 10.2 TH/MM3 Lymphocytes # (Auto) 1.5 TH/MM3 Monocytes # (Auto) 0.8 TH/MM3 Eosinophils # (Auto) 0.0 TH/MM3 Basophils # (Auto) 0.1 TH/MM3 CBC Comment DIFF FINAL Differential Comment Prothrombin Time 11.5 SEC Prothromb Time International 1.0 RATIO Ratio Sodium Level 137 MEQ/L Potassium Level 5.1 MEQ/L Chloride Level 98 MEQ/L Carbon Dioxide Level 27.9 MEQ/L Anion Gap 11 MEQ/L Blood Urea Nitrogen 51 MG/DL Creatinine 3.38 MG/DL Estimat Glomerular Filtration 17 ML/MIN Rate Random Glucose 152 MG/DL Calcium Level 9.1 MG/DL Total Creatine Kinase 164 U/L Creatine Kinase MB 3.2 NG/ML MDM Medical Decision Making Medical Screen Exam Complete: Yes Emergency Medical Condition: Yes Medical Record Reviewed: Yes Interpretation(s) Twelve-lead EKG was reviewed by me. Normal sinus rhythm, left axis deviation, right bundle branch block, tachycardia. Heart rate of 104 bpm. Differential Diagnosis Electrolyte abnormality, rib fracture, pneumothorax, intracranial bleed Narrative Course 12:30 PM CAT scan reports came back and they were all within normal limit. Patient was unable to urinate. Blood test results came back and his BUN/ creatinine were exceptionally high especially when compared to his last. I asked the nurse to put a Christopher catheter in and as soon as that was inserted patient urinated quite a bit. He may be obstructed in having obstructive uropathy. He is also getting IV hydration. I called the hospitalist and admitted him. His daughter and brother are here and they're really concerned about his mental health. They said lately he has been acting very confused. There is a possibility that his renal failure and maybe UTI is the reason for this. Further tests upon admission will probably have more answers. Procedures EKG Prior to Arrival: No Diagnosis Primary Impression: Obstructive uropathy Additional Impressions: Dehydration Renal failure Fall Qualified Code: W19.XXXA - Fall, initial encounter Confusion Admitting Information Admitting Physician Requests: Admit Scripts Ipratropium-Albuterol Neb (Duoneb)0.5-2.5 Mg/3 Ml Neb1 Ampule NEB Q6HR WHILE AWAKE NEB 30 Days Prov:Calos Rice DO 07/30/16 Zolpidem (Ambien)5 Mg Tab5 Mg PO HS PRN (INSOMNIA) #30 TAB Ref 0 Prov:Calos Rice DO 07/30/16 Hydrocodone-Acetaminophen 7.5-325 mg Tab1 Tab PO TID PRN (PAIN) #20 TAB Ref 0 Prov:Calos Rice DO 07/30/16 Lorazepam 1 Mg Tab1 Mg PO Q8H PRN (ANXIETY) #21 TAB Ref 0 Prov:Calos Rice DO 07/30/16 Allen Mo MD Jul 28, 2016 10:51
[2016-07-28 10:55] VITALS: BP 138/55; PULSE 105; RESP 21; TEMP 98.2; O2SAT 90
[2016-07-28] MEDS ORDERED: SODIUM CHLORIDE 0.9% FLUSH 10 ML FLUSH IVF PRN (11:00)
[2016-07-28] MEDS ORDERED: MORPHINE SULFATE 4 MG/ML INJ IV PUSH ONE (11:00)
[2016-07-28 11:31] LABS: AUTOMATED NEUTROPHIL # 10.2 TH/MM3 (1.8-7.7); BASOPHIL # 0.1 TH/MM3 (0-0.2); BASOPHIL % 0.5 % (0.0-2.0); EOSINOPHIL % 0.4 % (0.0-4.0); HEMATOCRIT 41.8 % (39.0-51.0); HEMO FLAGS DIFF FINAL; LYMPH % 11.9 % (9.0-44.0); LYMPHOCYTE # 1.5 TH/MM3 (1.0-4.8); MEAN CELL VOLUME 88.9 FL (80.0-100.0); MEAN CORPUSCULAR HEMOGLOBIN 29.5 PG (27.0-34.0); MEAN CORPUSCULAR HGB CONC 33.2 % (32.0-36.0); MONO % 6.2 % (0.0-8.0); PLATELET COUNT 201 TH/MM3 (150-450); RED BLOOD COUNT 4.71 MIL/MM3 (4.50-5.90); RED CELL DISTRIBUTION WIDTH 15.5 % (11.6-17.2); WHITE BLOOD COUNT 12.6 TH/MM3 (4.0-11.0)
[2016-07-28 11:40] LABS: PROTHROMBIN TIME - PATIENT 11.5 SEC (9.8-11.6)
--- NOTE | 2016-07-28 11:41 | RADRPT ---
EXAM DATE/TIME: 07/28/2016 11:15 [facility] COMPARISON: CT BRAIN W/O CONTRAST, April 08, 2016, 13:45. INDICATIONS : Fall today, cephalgia. RADIATION DOSE: 56.35 CTDIvol (mGy) MEDICAL HISTORY : Congestive hearrt failure. SURGICAL HISTORY : CABG ENCOUNTER: Initial ACUITY: 1 day PAIN SCALE: 2/10 LOCATION: Bilateral head TECHNIQUE: Multiple contiguous axial images were obtained of the head. Using automated exposure control and adj ustment of the mA and/or kV according to patient size, radiation dose was kept as low as reasonably a chievable to obtain optimal diagnostic quality images. FINDINGS: CEREBRUM: The ventricles are normal for age. No evidence of midline shift, mass lesion, hemorrhage or acute in farction. No extra-axial fluid collections are seen. POSTERIOR FOSSA: The cerebellum and brainstem are intact. The 4th ventricle is midline. The cerebellopontine angle i s unremarkable. EXTRACRANIAL: The visualized portion of the orbits is intact. SKULL: The calvaria is intact. No evidence of skull fracture. CONCLUSION: Normal examination for a patient of this age. Meagan Vickers MD on July 28, 2016 at 11:39 Board Certified Radiologist. This report was verified electronically.
--- NOTE | 2016-07-28 11:55 | RADRPT ---
EXAM DATE/TIME: 07/28/2016 11:13 [facility] COMPARISON: CT CERVICAL SPINE W/O CONTRAST, April 08, 2016, 13:45. INDICATIONS : Fall today, neck pain. RADIATION DOSE: 45.74 CTDIvol (mGy) MEDICAL HISTORY : Congestive hearrt failure. SURGICAL HISTORY : CABG ENCOUNTER: Initial ACUITY: 1 day PAIN SCALE: 1/10 LOCATION: Bilateral neck TECHNIQUE: Volumetric scanning of the cervical spine was performed. Multiplanar reconstructions in the sagittal, coronal and oblique axial planes were performed. Using automated exposure control and adjustment o f the mA and/or kV according to patient size, radiation dose was kept as low as reasonably achievable to obtain optimal diagnostic quality images. FINDINGS: VERTEBRAE: Normal vertebral body height. No evidence of fracture or dislocation. ALIGNMENT: No evidence of subluxation. Multilevel bilateral facet degenerative changes. These are unchanged from prior exam. No evidence of disc herniation. CONCLUSION: Stable degenerative changes seen predominately within the region of the facet joints. No evidence of fracture or dislocation. Meagan Vickers MD on July 28, 2016 at 11:52 Board Certified Radiologist. This report was verified electronically.
[2016-07-28 11:59] LABS: CREATINE KINASE 164 U/L (39-308)
--- NOTE | 2016-07-28 12:01 | RADRPT ---
EXAM DATE/TIME: 07/28/2016 11:21 [facility] COMPARISON: CT THORAX W/O CONTRAST, April 08, 2016, 13:54. INDICATIONS : Fall. Left sided chest pain. RADIATION DOSE: 9.56 CTDIvol (mGy) MEDICAL HISTORY : Cardiovascular disease. Congestive heart failure. SURGICAL HISTORY : CABG ENCOUNTER: Initial ACUITY: 1 day PAIN SCALE: 10/10 LOCATION: Left chest TECHNIQUE: Volumetric scanning of the chest was performed. Using automated exposure control and adjustment of t he mA and/or kV according to patient size, radiation dose was kept as low as reasonably achievable to obtain optimal diagnostic quality images. FINDINGS: LUNGS: There is no consolidation or pneumothorax. No concerning pulmonary nodule is visualized. Stable scar within the right lung base. PLEURAE: There is no pleural thickening or pleural effusion. MEDIASTINUM: The heart and great vessels demonstrate no acute abnormality. There is no mediastinal or hilar lymph adenopathy. Stable mild cardiomegaly and severe coronary artery disease. AXILLAE: Within normal limits. No lymphadenopathy. MUSCULOSKELETAL: Within normal limits for patient age. No evidence of fracture. MISCELLANEOUS: Cholelithiasis, stable.. CONCLUSION: No evidence of soft tissue or osseous injury. No evidence of lung contusion or pneumothorax.. Meagan Vickers MD on July 28, 2016 at 11:54 Board Certified Radiologist. This report was verified electronically.
[2016-07-28 12:13] LABS: ANION GAP 11 MEQ/L (5-15); BICARBONATE 27.9 MEQ/L (21.0-32.0); BLOOD UREA NITROGEN 51 MG/DL (7-18); CHLORIDE 98 MEQ/L (98-107); GLOMERULAR FILTRATION RATE 17 ML/MIN (>89); SODIUM (NA) 137 MEQ/L (136-145)
[2016-07-28 12:15] LABS: POTASSIUM 5.1 MEQ/L (3.5-5.1)
[2016-07-28 12:28] LABS: CKMB 3.2 NG/ML (0.5-3.6)
[2016-07-28] MEDS ORDERED: SODIUM CHLORID 0.9% 500 ML INJ 500 ML IV ONE (12:30)
[2016-07-28 13:02] VITALS: BP 137/60; PULSE 96; RESP 16; O2SAT 99
[2016-07-28 13:09] LABS: BLOOD, URINE NEG (NEG); COMMENT (UR) CULT NOT INDICATED; CULTURE IF INDICATED CULT NOT INDICATED; GLUCOSE,URINE NEG (NEG); HYALINE CAST, URINE 1 /lpf (RARE); KETONE, URINE NEG (NEG); MUCUS URINE FEW /lpf (OCC); NITRITE,URINE NEG (NEG); PH, URINE 5.5 (5.0-8.5); SQUAMOUS EPITHELIAL CELL URINE <1 /hpf (0-5); URINE COLOR YELLOW (YELLW/STRAW)
--- NOTE | 2016-07-28 14:39 | HHI.HP ---
HPI Service [facility] Primary Care Physician Renny Sanderson Admission Diagnosis Renal failure, confusion, fall Chief Complaint: abdomen pain/ams Travel History International Travel<30 Days: No Contact w/Intl Traveler <30 Da: No Traveled to Known Affected Are: No History of Present Illness Pt is 86 yo with cad,copd, ckd 3 who was admitted in May for cellulitis of his rle. he was initially given doxy outpt then admitted with iv vanco and improvement. later he was sent home on levaquin and his cellulitis resolved. Pt says over past 3 days he is having more left lower quad pain. no diarrhea but may have vomited 3 days ago. ED staff say family reported some confustion and falling at home. Pt is asking for pain meds. His urination may be less at home as well as po intake. denies any new drugs since last discharge and denies using nsaids. reports his pain doctor gives him cortisone shots and oral prednisone but he can't recall the details. In ED found to have acute on ckd Review of Systems Other fall and confusion per family left lower quad abdomen pain. Past Family Social History Past Medical History chronic back pains requiring every other month TERRELL ckd 3 cad/cabg x 4 copd. fev1 43% 2014. reversible with bronchodilators htn anxiety hyperlipidemia bph recent rle cellulitis Reported Medications Ambien (Zolpidem Tartrate) 5 Mg Tab 5 Mg PO HS PRN Hydrocodone-Acetaminophen 7.5-325 mg Tab 1 Tab PO TID PRN Lorazepam 1 Mg Tab 1 Mg PO Q8H PRN Proair Hfa 8.5 GM Inh (Albuterol Sulfate) 90 Mcg/Act Aer 2 Puff INH Q6H PRN 108 mcg/actuation K-Tab (Potassium Chloride) 20 Meq Tab 20 Meq PO DAILY Ipratropium Neb (Ipratropium [place]) 0.5 Mg/2.5 Ml Amp 0.5 Mg NEB ONCE Ventolin Hfa 18 GM Inh (Albuterol Sulfate) 90 Mcg/Act Aer 1 Puff INH Q4H PRN Albuterol Neb (Albuterol Sulfate) 0.63 Mg/3 Ml Neb 0.083 % NEB Q4HR NEB PRN Aspirin 81 Mg Chew 2 Tab CHEW DAILY Mirtazapine 15 Mg Tab 15 Mg PO HS Citalopram (Citalopram Hydrobromide) 20 Mg Tab 20 Mg PO HS Allergies: Coded Allergies: No Known Allergies (Verified , 06/02/16) Family History nc Social History no etoh/tob Physical Exam Vital Signs currently oriented and cooperative heart reg lung cta abd mild left lower quad tenderness. bs/nd ext no pitting. Vital Signs Date Time Temp Pulse Resp B/P Pulse Ox O2 Delivery O2 Flow Rate FiO2 07/28/16 13:02 96 16 137/60 99 Nasal Cannula 2 07/28/16 11:00 96 Nasal Cannula 2 07/28/16 10:55 98.2 105 21 138/55 90 Laboratory Laboratory Tests Test 07/28/16 07/28/16 11:05 12:55 White Blood Count 12.6 Red Blood Count 4.71 Hemoglobin 13.9 Hematocrit 41.8 Mean Corpuscular Volume 88.9 Mean Corpuscular Hemoglobin 29.5 Mean Corpuscular Hemoglobin 33.2 Concent Red Cell Distribution Width 15.5 Platelet Count 201 Mean Platelet Volume 8.7 Neutrophils (%) (Auto) 81.0 Lymphocytes (%) (Auto) 11.9 Monocytes (%) (Auto) 6.2 Eosinophils (%) (Auto) 0.4 Basophils (%) (Auto) 0.5 Neutrophils # (Auto) 10.2 Lymphocytes # (Auto) 1.5 Monocytes # (Auto) 0.8 Eosinophils # (Auto) 0.0 Basophils # (Auto) 0.1 CBC Comment DIFF FINAL Differential Comment Prothrombin Time 11.5 Prothromb Time International 1.0 Ratio Sodium Level 137 Potassium Level 5.1 Chloride Level 98 Carbon Dioxide Level 27.9 Anion Gap 11 Blood Urea Nitrogen 51 Creatinine 3.38 Estimat Glomerular Filtration 17 Rate Random Glucose 152 Calcium Level 9.1 Total Creatine Kinase 164 Creatine Kinase MB 3.2 Urine Color YELLOW Urine Turbidity HAZY Urine pH 5.5 Urine Specific [place] 1.022 Urine Protein 30 Urine Glucose (UA) NEG Urine Ketones NEG Urine Occult Blood NEG Urine Nitrite NEG Urine Bilirubin NEG Urine Urobilinogen 2.0 Urine Leukocyte Esterase NEG Urine RBC LESS THAN 1 Urine WBC 1 Urine Squamous Epithelial <1 Cells Urine Hyaline Casts 1 Urine Mucus FEW Microscopic Urinalysis Comment CULT NOT INDICATED Result Diagram: 07/28/16 1105 07/28/16 1105 Assessment and Plan Problem List: (1) Acute worsening of stage 3 chronic kidney disease Status: Acute Plan: Pt's clinical presentation of AMS, falls, weakness, denisha most likley related to dehydration and denisha/ckd3 Will evaluate his c/o left lower quad pain. mild leukocytosis. no diarrhea. recent abx use. ct a/p ivf overnight recheck bmp PT eval dvt prophylaxis check u/a, urine na,eosinophils. further wup as needed after initial eval. (2) Abdominal pain Status: Acute Plan: see above (3) CAD (coronary artery disease) Status: Chronic Plan: cont home meds (4) COPD (chronic obstructive pulmonary disease) Status: Chronic Plan: cont nebs (5) HTN (hypertension), benign Status: Chronic Plan: cont home meds (6) BPH (benign prostatic hyperplasia) Status: Chronic Physician Certification 2 Midnight Certification Type: Admission for Inpatient Services Order for Inpatient Services 3The services are ordered in accordance with Medicare regulations or non- Medicare payer requirements, as applicable. In the case of services not specified as inpatient-only, they are appropriately provided as inpatient services in accordance with the 2-midnight benchmark. Estimated LOS (days): 3 3 days is the estimated time the patient will need to remain in the hospital, assuming treatment plan goals are met and no additional complications. Post-Hospital Plan: Not yet determined Sorin Barraza MD Jul 28, 2016 14:39
[2016-07-28] MEDS ORDERED: RESP: ALBUTEROL 2.5 MG/IPRATROPIUM 0.5 MG NEB (PRN) NEB (16:45)
[2016-07-28 16:55] VITALS: BP 156/76; PULSE 98; RESP 20; O2SAT 97
[2016-07-28] MEDS: MORPHINE SULFATE 4 MG/ML INJ IV PUSH PRN ×2 (16:57→22:07)
[2016-07-28] MEDS: SODIUM CHLOR 0.9% 1000 ML INJ 1,000 ML IV SCH (16:58)
[2016-07-28] MEDS ORDERED: DIATRIZOATE MEGLUM/DIATRIZOATE SOD 9 ML CUP PO ONE (19:00)
[2016-07-28 20:00] VITALS: BP 115/59; PULSE 100; RESP 17; TEMP 98.4; O2SAT 95
--- NOTE | 2016-07-28 21:37 | RADRPT ---
EXAM DATE/TIME: 07/28/2016 21:01 [facility] COMPARISON: No previous studies available for comparison. INDICATIONS : Left sided abdominal pain. ORAL CONTRAST: Prescribed oral contrast ingested. RADIATION DOSE: 11.49 CTDIvol (mGy) MEDICAL HISTORY : Cardiovascular disease. Congestive heart failure. Hypertension. SURGICAL HISTORY : Hernia repair. ENCOUNTER: Initial ACUITY: 1 day PAIN SCALE: 6/10 LOCATION: Left abdomen TECHNIQUE: Volumetric scanning of the abdomen and pelvis was performed. Using automated exposure control and ad justment of the mA and/or kV according to patient size, radiation dose was kept as low as reasonably achievable to obtain optimal diagnostic quality images. FINDINGS: Lung bases demonstrate dependent atelectasis and scarring. Severe coronary calcifications. No acute f indings in the liver, spleen, adrenals or pancreas. Calcified gallstones in gallbladder. No hydroneph rosis or renal calculi. Small renal cysts bilaterally. There is colonic diverticulosis, especially sigmoid without evidence for diverticulitis. Gallstone is present in the gallbladder without delay ductal dilatation. Christopher catheter is present in the bladder. No acute bony abnormalities. CONCLUSION: 1. Extensive colonic diverticulosis, especially on the left side without evidence for diverticulitis. 2. Calcified gallstones without biliary ductal dilatation. 3. Christopher catheter in bladder. 4. Severe coronary calcifications. Cody Colon MD on July 28, 2016 at 21:16 Board Certified Radiologist. This report was verified electronically.
[2016-07-28] MEDS: CITALOPRAM HYDROBROMIDE 20 MG TAB PO SCH (21:59)
[2016-07-28] MEDS: MIRTAZAPINE 15 MG TAB PO SCH (21:59)
[2016-07-29] VITALS (7 sets, daily range): BP systolic 104–140; BP diastolic 56–84; PULSE 80–92; RESP 17–20; TEMP 97.2–99.2; O2SAT 92–96
[2016-07-29 05:36] LABS: BASOPHIL % 0.3 % (0.0-2.0); EOSINOPHIL # 0.2 TH/MM3 (0-0.4); EOSINOPHIL % 1.5 % (0.0-4.0); HEMATOCRIT 38.9 % (39.0-51.0); HEMO FLAGS DIFF FINAL; LYMPH % 18.8 % (9.0-44.0); LYMPHOCYTE # 2.4 TH/MM3 (1.0-4.8); MEAN CELL VOLUME 89.5 FL (80.0-100.0); MEAN CORPUSCULAR HEMOGLOBIN 28.6 PG (27.0-34.0); MEAN CORPUSCULAR HGB CONC 31.9 % (32.0-36.0); MONO % 7.5 % (0.0-8.0); NEUT % 71.9 % (16.0-70.0); PLATELET COUNT 165 TH/MM3 (150-450); RED BLOOD COUNT 4.34 MIL/MM3 (4.50-5.90); RED CELL DISTRIBUTION WIDTH 15.2 % (11.6-17.2); WHITE BLOOD COUNT 12.5 TH/MM3 (4.0-11.0)
[2016-07-29 05:52] LABS: BICARBONATE 27.4 MEQ/L (21.0-32.0); POTASSIUM 4.9 MEQ/L (3.5-5.1)
[2016-07-29] MEDS: SODIUM CHLOR 0.9% 1000 ML INJ 1,000 ML IV SCH ×3 (05:59→19:54)
[2016-07-29] MEDS: RESP: ALBUTEROL 2.5 MG/IPRATROPIUM 0.5 MG NEB (SCH) NEB ×3 (08:00→19:38)
[2016-07-29] MEDS: MORPHINE SULFATE 4 MG/ML INJ IV PUSH PRN (08:08)
--- NOTE | 2016-07-29 14:09 | EKG ---
Date Performed: 07/28/2016 Time Performed: 10:52:13 PTAGE: 86 years EKG: Probable Sinus rhythm with first degree AV block RIGHT BUNDLE BRANCH BLOCK LEFT ANTERIOR FASCICULAR BLOCK Since the prior tracing, there has been an increase in the heart rate but likely no other serial change. Unfortunatel y, the previous tracing did not record lead 2, so the axis cannot be determined. ABNORMAL ECG PREVIOUS TRACING : 04/20/2016 09.13 DOCTOR: Melina Freitas Interpretating Date/Time 07/29/2016 14:07:56
--- NOTE | 2016-07-29 14:25 | HHI.PR ---
Subjective Remarks No new complaints. Objective Vitals Vital Signs Date Time Temp Pulse Resp B/P Pulse Ox O2 Delivery O2 Flow Rate FiO2 07/29/16 12:00 97.2 80 20 137/84 94 07/29/16 08:00 95 Nasal Cannula 2.00 07/29/16 04:00 97.5 91 17 138/60 96 07/29/16 00:00 97.6 89 17 104/60 95 07/28/16 20:00 98.4 100 17 115/59 95 07/28/16 16:55 98 20 156/76 97 Nasal Cannula 2 07/28/16 07/28/16 07/29/16 15:00 23:00 07:00 Intake Total 240 ml 1141 ml Output Total 400 ml 600 ml Balance -160 ml 541 ml Intake Oral 240 ml 240 ml IV Total 901 ml Output Urine Total 400 ml 600 ml Result Diagram: 07/29/16 0451 07/29/16 0451 Imaging Last Impressions Head CT 07/28/16 0000 Signed Impressions: Service Date/Time: Thursday, July 28, 2016 11:15 - CONCLUSION: Normal examination for a patient of this age. Meagan Vickers MD Chest CT 07/28/16 0000 Signed Impressions: Service Date/Time: Thursday, July 28, 2016 11:21 - CONCLUSION: No evidence of soft tissue or osseous injury. No evidence of lung contusion or pneumothorax.. Meagan Vickers MD Cervical Spine CT 07/28/16 0000 Signed Impressions: Service Date/Time: Thursday, July 28, 2016 11:13 - CONCLUSION: Stable degenerative changes seen predominately within the region of the facet joints. No evidence of fracture or dislocation. Meagan Vickers MD Abdomen/Pelvis CT 07/28/16 0000 Signed Impressions: Service Date/Time: Thursday, July 28, 2016 21:01 - CONCLUSION: 1. Extensive colonic diverticulosis, especially on the left side without evidence for diverticulitis. 2. Calcified gallstones without biliary ductal dilatation. 3. Christopher catheter in bladder. 4. Severe coronary calcifications. Cody Colon MD Objective Remarks GENERAL: This is a well-nourished, well-developed patient, in no apparent distress. CARDIOVASCULAR: Regular rate and rhythm without murmurs, gallops, or rubs. RESPIRATORY: Clear to auscultation. Breath sounds equal bilaterally. No wheezes , rales, or rhonchi. GASTROINTESTINAL: Abdomen soft, non-tender, nondistended. Normal active bowel sounds MUSCULOSKELETAL: Extremities without clubbing, cyanosis, or edema. NEURO: Alert & Oriented x4 to person, place, time, situation. Moves all ext x4 A/P Problem List: (1) Acute worsening of stage 3 chronic kidney disease Status: Acute Plan: - improving Pt's clinical presentation of AMS, falls, weakness, denisha most likley related to dehydration and denisha/ckd3 - continue IVFs - repeat BMP in AM - PT - DVT prophylaxis (2) Abdominal pain Status: Acute Plan: CT abd/pelvis (07/28/16) - NO acute findings (3) CAD (coronary artery disease) Status: Chronic Plan: cont home meds (4) COPD (chronic obstructive pulmonary disease) Status: Chronic Plan: cont nebs (5) HTN (hypertension), benign Status: Chronic Plan: cont home meds (6) BPH (benign prostatic hyperplasia) Status: Chronic Calos Rice DO Jul 29, 2016 14:25
[2016-07-29] MEDS: MIRTAZAPINE 15 MG TAB PO SCH (19:54)
[2016-07-29] MEDS: CITALOPRAM HYDROBROMIDE 20 MG TAB PO SCH (19:54)
[2016-07-30] VITALS (7 sets, daily range): BP systolic 122–158; BP diastolic 62–87; PULSE 81–97; RESP 17–19; TEMP 97–98.8; O2SAT 91–95
[2016-07-30] MEDS: MORPHINE SULFATE 4 MG/ML INJ IV PUSH PRN ×3 (04:01→12:17)
[2016-07-30 06:20] LABS: AUTOMATED NEUTROPHIL # 7.4 TH/MM3 (1.8-7.7); BASOPHIL % 0.4 % (0.0-2.0); EOSINOPHIL # 0.3 TH/MM3 (0-0.4); EOSINOPHIL % 2.3 % (0.0-4.0); HEMATOCRIT 40.7 % (39.0-51.0); HEMO FLAGS DIFF FINAL; LYMPH % 20.4 % (9.0-44.0); LYMPHOCYTE # 2.2 TH/MM3 (1.0-4.8); MEAN CELL VOLUME 90.7 FL (80.0-100.0); MONO % 7.7 % (0.0-8.0); NEUT % 69.2 % (16.0-70.0); PLATELET COUNT 153 TH/MM3 (150-450); RED BLOOD COUNT 4.49 MIL/MM3 (4.50-5.90); RED CELL DISTRIBUTION WIDTH 15.2 % (11.6-17.2); WHITE BLOOD COUNT 10.7 TH/MM3 (4.0-11.0)
[2016-07-30 06:40] LABS: BICARBONATE 26.8 MEQ/L (21.0-32.0); MAGNESIUM 2.3 MG/DL (1.5-2.5); POTASSIUM 4.4 MEQ/L (3.5-5.1)
[2016-07-30] MEDS: RESP: ALBUTEROL 2.5 MG/IPRATROPIUM 0.5 MG NEB (SCH) NEB ×3 (08:52→20:49)
[2016-07-30] MEDS ORDERED: HYDR-3580 PO (15:30)
[2016-07-30] MEDS ORDERED: LORA1TAB12 PO (15:30)
[2016-07-30] MEDS ORDERED: AMBI5TAB PO (15:30)
[2016-07-30] MEDS ORDERED: IPRASOL NEB (15:30)
--- NOTE | 2016-07-30 15:34 | HHI.DCPOC ---
Discharge Care Plan Diagnosis: (1) HTN (hypertension), benign (2) CKD (chronic kidney disease) stage 3, GFR 30-59 ml/min Goals to Promote Your Health * To prevent worsening of your condition and complications * To maintain your health at the optimal level Directions to Meet Your Goals Take your medications as prescribed Follow your dietary instruction Follow activity as directed Keep your appointments as scheduled Take your immunizations and boosters as scheduled If your symptoms worsen call your PCP, if no PCP go to Urgent Care Center or Emergency Room Smoking is Dangerous to Your Health. Avoid second hand smoke Call the 24-hour hour crisis hotline for domestic abuse at Calos Rice DO Jul 30, 2016 15:34
--- NOTE | 2016-07-30 15:37 | HHI.PR ---
Subjective Remarks No new complaints. Eager for discharge to SNF. Objective Vitals Vital Signs Date Time Temp Pulse Resp B/P Pulse Ox O2 Delivery O2 Flow Rate FiO2 07/30/16 12:00 97.6 94 19 134/65 95 07/30/16 08:53 91 21 07/30/16 08:00 97.3 83 18 151/72 91 07/30/16 00:00 97.0 81 17 128/70 93 07/29/16 20:00 97.7 88 17 140/72 92 07/29/16 19:38 92 21 07/29/16 16:00 99.2 92 20 123/56 92 07/29/16 07/29/16 07/30/16 15:00 23:00 07:00 Intake Total 593 ml 1255 ml 1440 ml Output Total 1000 ml 1200 ml Balance 593 ml 255 ml 240 ml Intake Oral 600 ml 720 ml IV Total 593 ml 655 ml 720 ml Output Urine Total 1000 ml 1200 ml # Bowel Movements 0 0 Result Diagram: 07/30/16 0509 07/30/16 0509 Imaging Last Impressions Head CT 07/28/16 0000 Signed Impressions: Service Date/Time: Thursday, July 28, 2016 11:15 - CONCLUSION: Normal examination for a patient of this age. Meagan Vickers MD Chest CT 07/28/16 0000 Signed Impressions: Service Date/Time: Thursday, July 28, 2016 11:21 - CONCLUSION: No evidence of soft tissue or osseous injury. No evidence of lung contusion or pneumothorax.. Meagan Vickers MD Cervical Spine CT 07/28/16 0000 Signed Impressions: Service Date/Time: Thursday, July 28, 2016 11:13 - CONCLUSION: Stable degenerative changes seen predominately within the region of the facet joints. No evidence of fracture or dislocation. Meagan Vickers MD Abdomen/Pelvis CT 07/28/16 0000 Signed Impressions: Service Date/Time: Thursday, July 28, 2016 21:01 - CONCLUSION: 1. Extensive colonic diverticulosis, especially on the left side without evidence for diverticulitis. 2. Calcified gallstones without biliary ductal dilatation. 3. Christopher catheter in bladder. 4. Severe coronary calcifications. Cody Colon MD Objective Remarks GENERAL: This is a well-nourished, well-developed patient, in no apparent distress. CARDIOVASCULAR: Regular rate and rhythm without murmurs, gallops, or rubs. RESPIRATORY: Clear to auscultation. Breath sounds equal bilaterally. No wheezes , rales, or rhonchi. GASTROINTESTINAL: Abdomen soft, non-tender, nondistended. Normal active bowel sounds MUSCULOSKELETAL: Extremities without clubbing, cyanosis, or edema. NEURO: Alert & Oriented x4 to person, place, time, situation. Moves all ext x4 A/P Problem List: (1) Acute worsening of stage 3 chronic kidney disease Status: Acute Plan: - resolved with IV hydration Pt's clinical presentation of AMS, falls, weakness, denisha most likley related to dehydration and denisha/ckd3 - PT - discharge to SNF today. - DVT prophylaxis (2) Abdominal pain Status: Acute Plan: CT abd/pelvis (07/28/16) - NO acute findings (3) CAD (coronary artery disease) Status: Chronic Plan: cont home meds (4) COPD (chronic obstructive pulmonary disease) Status: Chronic Plan: cont nebs (5) HTN (hypertension), benign Status: Chronic Plan: cont home meds (6) BPH (benign prostatic hyperplasia) Status: Chronic Calos Rice DO Jul 30, 2016 15:37
[2016-07-30] MEDS: MIRTAZAPINE 15 MG TAB PO SCH (22:06)
[2016-07-30] MEDS: CITALOPRAM HYDROBROMIDE 20 MG TAB PO SCH (22:06)
[2016-07-31] VITALS: BP 118/61; PULSE 76; RESP 17; TEMP 97.8; O2SAT 93
[2016-07-31 07:54] VITALS: O2SAT 95
[2016-07-31] MEDS: RESP: ALBUTEROL 2.5 MG/IPRATROPIUM 0.5 MG NEB (SCH) NEB (07:54)
[2016-07-31 08:00] VITALS: BP 139/92; PULSE 86; RESP 18; TEMP 97.6; O2SAT 92
[2016-07-31 08:16] LABS: BICARBONATE 26.5 MEQ/L (21.0-32.0); POTASSIUM 4.3 MEQ/L (3.5-5.1)
--- NOTE | 2016-07-31 11:43 | HHI.DS ---
Discharge Summary Admission Date Jul 28, 2016 at 12:52 Discharge Date: Jul 31, 2016 Admitting Diagnosis Renal failure, confusion, fall (1) Acute worsening of stage 3 chronic kidney disease Diagnosis: Principal (2) Abdominal pain Diagnosis: Secondary (3) CAD (coronary artery disease) Diagnosis: Secondary (4) COPD (chronic obstructive pulmonary disease) Diagnosis: Secondary (5) HTN (hypertension), benign Diagnosis: Secondary (6) BPH (benign prostatic hyperplasia) Diagnosis: Secondary Brief History Pt is 86 yo with cad,copd, ckd 3 who was admitted in May for cellulitis of his rle. he was initially given doxy outpt then admitted with iv vanco and improvement. later he was sent home on levaquin and his cellulitis resolved. Pt says over past 3 days he is having more left lower quad pain. no diarrhea but may have vomited 3 days ago. ED staff say family reported some confustion and falling at home. Pt is asking for pain meds. His urination may be less at home as well as po intake. denies any new drugs since last discharge and denies using nsaids. reports his pain doctor gives him cortisone shots and oral prednisone but he can't recall the details. In ED found to have acute on ckd CBC/BMP: 07/30/16 0509 07/31/16 0650 Significant Findings Laboratory Tests Test 07/28/16 07/29/16 07/30/16 07/31/16 12:55 04:51 05:09 06:50 Urine Turbidity HAZY (CLEAR) Urine Protein 30 mg/dL (NEG-TRACE) Urine Mucus FEW /lpf (OCC) White Blood Count 12.5 TH/MM3 (4.0-11.0) Red Blood Count 4.34 MIL/MM3 4.49 MIL/MM3 (4.50-5.90) (4.50-5.90) Hemoglobin 12.4 GM/DL (13.0-17.0) Hematocrit 38.9 % (39.0-51.0) Mean Corpuscular Hemoglobin 31.9 % Concent (32.0-36.0) Neutrophils (%) (Auto) 71.9 % (16.0-70.0) Neutrophils # (Auto) 9.0 TH/MM3 (1.8-7.7) Blood Urea Nitrogen 42 MG/DL (7-18) 32 MG/DL (7-18) 26 MG/DL (7-18) Creatinine 1.95 MG/DL (0.60-1.30) Estimat Glomerular Filtration 33 ML/MIN (>89) 54 ML/MIN (>89) 61 ML/MIN (>89) Rate Calcium Level 8.4 MG/DL (8.5-10.1) Imaging Last Impressions Head CT 07/28/16 0000 Signed Impressions: Service Date/Time: Thursday, July 28, 2016 11:15 - CONCLUSION: Normal examination for a patient of this age. Meagan Vickers MD Chest CT 07/28/16 0000 Signed Impressions: Service Date/Time: Thursday, July 28, 2016 11:21 - CONCLUSION: No evidence of soft tissue or osseous injury. No evidence of lung contusion or pneumothorax.. Meagan Vickers MD Cervical Spine CT 07/28/16 0000 Signed Impressions: Service Date/Time: Thursday, July 28, 2016 11:13 - CONCLUSION: Stable degenerative changes seen predominately within the region of the facet joints. No evidence of fracture or dislocation. Meagan Vickers MD Abdomen/Pelvis CT 07/28/16 0000 Signed Impressions: Service Date/Time: Thursday, July 28, 2016 21:01 - CONCLUSION: 1. Extensive colonic diverticulosis, especially on the left side without evidence for diverticulitis. 2. Calcified gallstones without biliary ductal dilatation. 3. Christopher catheter in bladder. 4. Severe coronary calcifications. Cody Colon MD Hospital Course Patient presented to the ED with reported AMS, falls, weakness, LLQ abd pain and was found to have ABRAM most likely related to dehydration and poor oral intake. His complaints of left lower quad pain were evaluated with a CT Abd/ pelvis which noted extensive colonic diverticulosis, especially on the left side without evidence for diverticulitis, calcified gallstones without biliary ductal dilatation, Christopher catheter in bladder, and severe coronary calcifications. Pt also was evaluated in the ED with a CT Chest, Head CT and CXR for his hx of falls but there was no acute injuries noted. UA was negative. Pt received IVF with improvement in his dehydration and ABRAM as well as improvement in his clinical status. Pt will be discharged to SNF for continued rehab efforts. Pt will need to followup with his PCP, Dr. Sanderson, 1 week after discharge from SNF. Pt Condition on Discharge: Stable Discharge Disposition: Discharge to SNF Discharge Instructions DIET: Follow Instructions for: Heart Healthy Diet Activities you can perform: Regular-No Restrictions Follow up Referrals: PCP Follow-up - [address] Tre Sanderson New Medications: Ipratropium-Albuterol Neb (Duoneb) 0.5-2.5 Mg/3 Ml Neb 1 AMPULE NEB Q6HR WHILE AWAKE NEB copd Days 30 ML Continued Medications: Albuterol 18 GM Inh (Ventolin Hfa 18 GM Inh) 90 Mcg/Act Aer 1 PUFF INH Q4H PRN SHORTNESS OF BREATH #1 Ref 0 INHALER Aspirin (Aspirin) 81 Mg Chew 2 TAB CHEW DAILY Ref 0 TAB Citalopram (Citalopram) 20 Mg Tab 20 MG PO HS Control Depression Ref 0 TAB Hydrocodone-Acetaminophen (Hydrocodone-Acetaminophen) 7.5-325 mg Tab 1 TAB PO TID PRN PAIN #20 Ref 0 TAB (This prescription has been renewed) Lorazepam (Lorazepam) 1 Mg Tab 1 MG PO Q8H PRN ANXIETY #21 Ref 0 TAB (This prescription has been renewed) Mirtazapine (Mirtazapine) 15 Mg Tab 15 MG PO HS Depression Control #30 Ref 0 TAB Zolpidem (Ambien) 5 Mg Tab 5 MG PO HS PRN INSOMNIA #30 Ref 0 TAB (This prescription has been renewed) Discontinued Medications: Albuterol 8.5 GM Inh (Proair Hfa 8.5 GM Inh) 90 Mcg/Act Aer 2 PUFF INH Q6H 108 mcg/actuation PRN SHORTNESS OF BREATH #1 Ref 0 INHALER Albuterol Neb (Albuterol Neb) 0.63 Mg/3 Ml Neb 0.083 % NEB Q4HR NEB PRN SHORTNESS OF BREATH #25 Ref 0 NEBULE Ipratropium Neb (Ipratropium Neb) 0.5 Mg/2.5 Ml Amp 0.5 MG NEB ONCE Breathing Treatment Ref 0 NEBULE Levofloxacin (Levaquin) 500 Mg Tab 500 MG PO Q24H Infection #5 TAB Potassium Chloride ER (K-Tab) 20 Meq Tab 20 MEQ PO DAILY Electrolyte Replacement #30 Ref 0 TAB Additional Information Patient examined. Assessment and plan formulated with Karissa Pritchett PA-C. I agree with the above. Karissa Pritchett Jul 31, 2016 11:43 Calos Rice DO Aug 11, 2016 10:16 Aspirin (Aspirin) 81 Mg Chew 2 TAB CHEW DAILY Ref 0 TAB Citalopram (Citalopram) 20 Mg Tab 20 MG PO HS Control Depression Ref 0 TAB Hydrocodone-Acetaminophen (Hydrocodone-Acetaminophen) 7.5-325 mg Tab 1 TAB PO TID PRN PAIN #20 Ref 0 TAB (This prescription has been renewed) Lorazepam (Lorazepam) 1 Mg Tab 1 MG PO Q8H PRN ANXIETY #21 Ref 0 TAB (This prescription has been renewed) Mirtazapine (Mirtazapine) 15 Mg Tab 15 MG PO HS Depression Control #30 Ref 0 TAB Zolpidem (Ambien) 5 Mg Tab 5 MG PO HS PRN INSOMNIA #30 Ref 0 TAB (This prescription has been renewed) Discontinued Medications: Albuterol 8.5 GM Inh (Proair Hfa 8.5 GM Inh) 90 Mcg/Act Aer 2 PUFF INH Q6H 108 mcg/actuation PRN SHORTNESS OF BREATH #1 Ref 0 INHALER Albuterol Neb (Albuterol Neb) 0.63 Mg/3 Ml Neb 0.083 % NEB Q4HR NEB PRN SHORTNESS OF BREATH #25 Ref 0 NEBULE Ipratropium Neb (Ipratropium Neb) 0.5 Mg/2.5 Ml Amp 0.5 MG NEB ONCE Breathing Treatment Ref 0 NEBULE Levofloxacin (Levaquin) 500 Mg Tab 500 MG PO Q24H Infection #5 TAB Potassium Chloride ER (K-Tab) 20 Meq Tab 20 MEQ PO DAILY Electrolyte Replacement #30 Ref 0 TAB Karissa Pritchett Jul 31, 2016 11:43
[2016-07-31 12:00] VITALS: BP 140/81; PULSE 94; RESP 17; TEMP 99; O2SAT 94
== END 2016-07-31 12:55 | DRG 683 ==
LOC: NEPC 10:45 → NEDA 12:52 → N07B 17:48
PROVIDERS: ADMIT Hospitalist; ATTEND Hospitalist
DX: N17.9 Acute kidney failure, unspecified (principal); I13.0 Hypertensive heart and chronic kidney disease with heart failure and stage 1 through stage 4 chronic kidney disease, or unspecified chronic kidney disease; I50.9 Heart failure, unspecified; J44.9 Chronic obstructive pulmonary disease, unspecified; I25.810 Atherosclerosis of coronary artery bypass graft(s) without angina pectoris; E86.0 Dehydration; N18.3 Chronic kidney disease, stage 3 (moderate); E78.5 Hyperlipidemia, unspecified; I25.2 Old myocardial infarction; N40.1 Benign prostatic hyperplasia with lower urinary tract symptoms; W19.XXXA Unspecified fall, initial encounter; Y92.009 Unspecified place in unspecified non-institutional (private) residence as the place of occurrence of the external cause; Z91.81 History of falling; H40.9 Unspecified glaucoma; H91.90 Unspecified hearing loss, unspecified ear; Z95.1 Presence of aortocoronary bypass graft
CPT/HCPCS: 70450; 71250; 72125; 74176; 80048; 81001; 82550; 82552; 83735; 84300; 85025; 85610; 87205; 93005; 94640; 94664; 96374; J2270; J7030; J7040; Q9963